=== PATIENT | female | born 2000 | race African-American/Black ===

== ENCOUNTER 2021-08-14 22:51 | Emergency (ER) | payer MEDICAID, OTHER ==
[~2021-08-14] VITALS: Ht 154.9 cm; Wt 61.2 kg
[2021-08-15] MEDS ORDERED: IOHEXOL 300 MG/ML 100ML BOTTLE IJ ONE (00:02)
[2021-08-15 01:06] LABS: Basophils % (auto) 0.4 % (0.0-2.0); Eosinophils # (auto) 0 10 ^3/uL (0-0.8); Monocytes # (auto) 0.8 10 ^3/uL (0-1.3); Neutrophils # (auto) 10.3 10 ^3/uL (1.6-8.6)
[2021-08-15 01:09] LABS: Basophils # (auto) 0.1 10 ^3/uL (0-0.2); Eosinophils % (auto) 0.1 % (0.0-7.0); Hemoglobin 12.4 g/dL (12.2-16.2); Lymphocytes # (auto) 1.3 10 ^3/uL (0.4-5.4); Lymphocytes % (auto) 10.7 % (10.0-50.0); Mean Corpuscular Hemoglobin 26.6 pg (28.0-32.0); Mean Corpuscular Hgb Conc. 32.6 g/dL (32.0-36.0); Mean Corpuscular Volume 81.4 fL (80.0-100.0); Monocytes % (auto) 6.3 % (0.0-12.0); Neutrophils % (auto) 82.5 % (37.0-80.0); Red Blood Cells 4.66 10^6/uL (4.0-5.20); Red Cell Distribution Width 16.3 % (11.8-14.3); White Blood Cell 12.5 10^3/uL (4.4-10.8)
[2021-08-15 01:12] LABS: INR 0.94 (0.9-1.15)
[2021-08-15 01:16] LABS: BUN/Creatinine Ratio 14.3; Calcium 9.5 mg/dL (8.5-10.1); Potassium 3.7 mmol/L (3.5-5.1)
[2021-08-15 01:18] LABS: Bilirubin, Total 0.2 mg/dL (0.2-1.0); Total Protein 8.6 g/dL (6.4-8.2)
[2021-08-15] MEDS ORDERED: SODIUM CHLORIDE 0.9% 1,000 ML IV ONE (04:30)
[2021-08-15 04:35] LABS: INR 0.98 (0.9-1.15)
[2021-08-15 04:42] VITALS: BP 122/68
== END 2021-08-15 05:13 | disposition short-term general hospital (02) ==
LOC: ER 22:52
DX: S36.899A Unspecified injury of other intra-abdominal organs, initial encounter (principal); S36.119A Unspecified injury of liver, initial encounter; S36.409A Unspecified injury of unspecified part of small intestine, initial encounter; D72.829 Elevated white blood cell count, unspecified; R51.9 Headache, unspecified; V43.62XA Car passenger injured in collision with other type car in traffic accident, initial encounter; Y93.89 Activity, other specified; Y92.89 Other specified places as the place of occurrence of the external cause; Y99.8 Other external cause status
CPT/HCPCS: 36415; 70450; 73060; 74176; 74177; 80053; 84702; 85025; 85610; 86850; 86900; 86901; 96360; 99285; J7030; Q9967

== ENCOUNTER 2024-03-25 21:25 | Emergency (ER) | payer OTHER ==
[~2024-03-25] VITALS: Ht 152.4 cm; Wt 68.2 kg
[2024-03-26] MEDS ORDERED: IBUP-1456 PO (01:57)
[2024-03-26] MEDS: ACETAMINOPHEN 325 MG TAB PO ONE (02:00)
[2024-03-26 04:30] VITALS: BP 127/72; PULSE 78; RESP 16; TEMP 97.8; O2SAT 98
== END 2024-03-26 05:05 | disposition home or self-care (01) ==
LOC: ER 21:25
DX: S93.401A Sprain of unspecified ligament of right ankle, initial encounter (principal); S80.02XA Contusion of left knee, initial encounter; S20.211A Contusion of right front wall of thorax, initial encounter; Z79.1 Long term (current) use of non-steroidal anti-inflammatories (NSAID); Z88.0 Allergy status to penicillin; W01.0XXA Fall on same level from slipping, tripping and stumbling without subsequent striking against object, initial encounter; Y93.89 Activity, other specified; Y92.89 Other specified places as the place of occurrence of the external cause; Y99.8 Other external cause status
CPT/HCPCS: 71101; 73562; 73610; 94640